=== PATIENT | female | born 2000 | race Caucasian/White ===

== ENCOUNTER 2020-04-18 09:59 | Emergency (ER) | payer BC, MEDICAID ==
[~2020-04-18] VITALS: Ht 154.9 cm; Wt 43.3 kg
--- NOTE | 2020-04-18 10:19 | NUR ---
Patient given blanket and put in position of comfort.
[2020-04-18] MEDS ORDERED: ketorolac trometh. 30mg/ml inj. IV ONE (10:25)
[2020-04-18] MEDS ORDERED: normal saline 1000ML IV soln IVB ONE (10:25)
[2020-04-18 10:50] LABS: BASOPHILS % (AUTO) 0.7 % (0-1); EOSINOPHILS # (AUTO) 0.5 X10'3 (0-0.9); EOSINOPHILS % (AUTO) 8.9 % (0-6); HEMATOCRIT 44.2 % (35.0-45.0); HEMOGLOBIN 14.5 g/dl (12.0-16.0); LYMPHOCYTES # (AUTO) 1.1 X10'3 (1.1-4.8); LYMPHOCYTES % (AUTO) 19.4 % (21-51); MEAN CORPUSCULAR HGB CONC 32.9 g/dL (33.0-36.5); MEAN CORPUSCULAR VOLUME 94.2 FL (78-98); MEAN PLATELET VOLUME 8.8 FL (7.4-10.4); MONOCYTES # (AUTO) 0.7 X10'3 (0-0.9); MONOCYTES % (AUTO) 11.2 % (2-12); NEUTROPHILS # (AUTO) 3.5 X10'3 (1.8-7.7); NEUTROPHILS % (AUTO) 59.8 % (42-75); PLATELET COUNT 217 X10'3 (140-440); RED BLOOD COUNT 4.69 X10'6 (4.20-5.60); RED CELL DISTRIBUTION WIDTH 14.2 % (11.5-14.5); WHITE BLOOD COUNT 5.8 X10'3 (4.5-11.0)
[2020-04-18 10:51] LABS: CLARITY,URINE SLIGHTLY CLOUDY (Clear); COLOR,URINE AMBER (Yellow)
[2020-04-18 10:53] LABS: UA COLLECTION TYPE CLN CATCH MIDSTREAM
[2020-04-18 10:56] LABS: URINE HCG NEGATIVE (NEG)
[2020-04-18 10:57] LABS: MUCUS STRANDS NONE SEEN /LPF (Neg); SQUAMOUS EPITHELIAL CELL,UR MANY /LPF (FEW); TRANSITIONAL EPI CELLS,URINE FEW /HPF
[2020-04-18 10:58] LABS: BACTERIA,URINE FEW /HPF (Neg); WBC,URINE 0-4 /HPF (0-4)
[2020-04-18 10:59] LABS: RBC,URINE 0-2 /HPF (0-2)
[2020-04-18 11:00] LABS: RENAL CELLS, URINE FEW /HPF
[2020-04-18 11:12] LABS: ALANINE AMINOTRANSFERASE 17 U/L (12-78); ALBUMIN/GLOBULIN RATIO 1.2 (1.1-1.5); ALKALINE PHOSPHATASE 85 IU/L (20-180); ANION GAP 10 (8-16); ASPARTATE AMINO TRANSFERASE 13 U/L (10-37); BILIRUBIN,TOTAL 0.2 MG/DL (0.1-1.0); BLOOD UREA NITROGEN 6 MG/DL (7-18); BUN/CREATININE RATIO 7.1 (6.6-38.0); CALCIUM 8.8 MG/DL (8.5-10.1); CHLORIDE 100 MMOL/L (99-107); CREATININE 0.85 MG/DL (0.40-0.90); GLUCOSE 133 MG/DL (70-104); POTASSIUM 3.7 MMOL/L (3.5-5.1); SODIUM 136 MMOL/L (135-145); TOTAL CARBON DIOXIDE 26.3 MMOL/L (24-32); TOTAL PROTEIN 7.4 G/DL (6.4-8.2); eGFR 85 ML/MIN
[2020-04-18] MEDS ORDERED: HYDROcodone/acetaminophen 5mg/325mg tablet PO ONE (11:35)
[2020-04-18] MEDS ORDERED: ondansetron/PF 4mg/2ml inj IV ONE (11:45)
[2020-04-18] MEDS ORDERED: morphine 4 MG/ML inj SYRINge IV ONE (11:45)
[2020-04-18] MEDS ORDERED: METR250T PO (13:14)
[2020-04-18] MEDS ORDERED: ONDA4TAB6 PO (13:14)
[2020-04-18] MEDS ORDERED: NAPR-56 PO (13:14)
[2020-04-18 13:32] VITALS: BP 119/82
== END 2020-04-18 13:30 | disposition home or self-care (01) ==
LOC: ER 10:00 → EEVIPCON 10:00 → ER 13:30
DX: N76.0 Acute vaginitis (principal); B96.89 Other specified bacterial agents as the cause of diseases classified elsewhere; M54.9 Dorsalgia, unspecified; Z79.899 Other long term (current) drug therapy
CPT/HCPCS: 36415; 74176; 76830; 76856; 80053; 81001; 81025; 85025; 96361; 96374; 96375; 99285; J1885; J2270; J2405; J7030

== ENCOUNTER 2023-01-05 12:42 | Emergency (ER) | payer BC, MEDICAID ==
[~2023-01-05] VITALS: Ht 154.9 cm; Wt 50.0 kg
[~2023-01-05 12:42] MED LIST: ONDA4TAB6 PO
[2023-01-05 12:45] VITALS: BP 128/80
[2023-01-05] MEDS ORDERED: LORA-269 PO (12:52)
[2023-01-05] MEDS ORDERED: BUPR-94 PO (12:52)
== END 2023-01-05 13:10 | disposition home or self-care (01) ==
LOC: EEVIPCON 12:42 → ER 12:42
DX: F32.A Depression, unspecified (principal); F41.9 Anxiety disorder, unspecified; Z79.899 Other long term (current) drug therapy
CPT/HCPCS: 99283; 99284

== ENCOUNTER 2023-02-14 09:30 | Emergency (ER) | payer MEDICAID ==
[~2023-02-14] VITALS: Ht 154.9 cm; Wt 44.0 kg
[~2023-02-14 09:30] MED LIST changes: +BUPR-94 PO; +LORA-269 PO
[2023-02-14 09:47] VITALS: PULSE 77; RESP 16; TEMP 98.8; O2SAT 98
[2023-02-14] MEDS ORDERED: BUPR-94 PO (10:04)
== END 2023-02-14 10:55 | disposition home or self-care (01) ==
LOC: ER 09:30
DX: S21.119D Laceration without foreign body of unspecified front wall of thorax without penetration into thoracic cavity, subsequent encounter (principal); Z79.899 Other long term (current) drug therapy; Z48.00 Encounter for change or removal of nonsurgical wound dressing; X58.XXXD Exposure to other specified factors, subsequent encounter
CPT/HCPCS: 99281

== ENCOUNTER 2023-03-16 09:06 | Emergency (ER) | payer MEDICAID ==
[~2023-03-16] VITALS: Ht 154.9 cm; Wt 44.2 kg
[2023-03-16 09:07] VITALS: BP 107/83; PULSE 95; RESP 16; TEMP 98.6; O2SAT 100
[2023-03-16] MEDS ORDERED: ketorolac trometh inj. 60 MG/2 ML VIAL IM ONE (09:25)
[2023-03-16] MEDS ORDERED: AZIT-164 PO (09:52)
== END 2023-03-16 10:16 | disposition home or self-care (01) ==
LOC: ER 09:06
DX: J02.9 Acute pharyngitis, unspecified (principal); Z20.822 Contact with and (suspected) exposure to COVID-19; Z79.2 Long term (current) use of antibiotics; Z79.899 Other long term (current) drug therapy
CPT/HCPCS: 36415; 87811; 96372; 99283; J1885

== ENCOUNTER 2023-04-19 12:43 | Emergency (ER) | payer MEDICAID ==
[~2023-04-19] VITALS: Ht 154.9 cm; Wt 45.5 kg
[2023-04-19 13:03] VITALS: BP 117/85; PULSE 98; RESP 18; TEMP 97.7; O2SAT 97
[2023-04-19] MEDS ORDERED: acetaminophen 325mg tablet PO ONE (13:05)
[2023-04-19] MEDS ORDERED: naproxen 500mg tablet PO ONE (13:05)
[2023-04-19] MEDS ORDERED: LIDOcaine 1% W/epiNEPHrine 1:100,000 20ml vial IJ ONE (13:05)
== END 2023-04-19 20:33 | disposition home or self-care (01) ==
LOC: ER 12:44
DX: M43.6 Torticollis (principal); M62.838 Other muscle spasm; F17.200 Nicotine dependence, unspecified, uncomplicated; Z79.899 Other long term (current) drug therapy
CPT/HCPCS: 20552; 99284; J3490

== ENCOUNTER 2024-07-15 10:04 | Emergency (ER) | payer MEDICAID ==
[~2024-07-15] VITALS: Ht 154.9 cm; Wt 45.0 kg
[2024-07-15 10:22] VITALS: BP 141/98; PULSE 78; TEMP 97.8; O2SAT 97
[2024-07-15] MEDS: ondansetron 4mg rapidly disintigrating tab PO ONE (10:35)
[2024-07-15] MEDS: HYDROcodone/acetaminophen 5mg/325mg tablet PO ONE (10:36)
[2024-07-15 10:48] VITALS: RESP 18
[2024-07-15] MEDS: ketorolac trometh 30MG/ML vial 30 MG/ML VIAL IM ONE (10:48)
[2024-07-15] MEDS: LIDOcaine 5% patch TP SCH (11:12)
[2024-07-15] MEDS ORDERED: NAPR-56 PO (12:03)
[2024-07-15] MEDS ORDERED: LIDO700A47 TOP (12:03)
[2024-07-15] MEDS ORDERED: HYDR-3972 PO (12:03)
== END 2024-07-15 12:38 | disposition home or self-care (01) ==
LOC: ER 10:05 → EEVIPCON 10:05 → ER 12:38
DX: S22.32XA Fracture of one rib, left side, initial encounter for closed fracture (principal); Z79.899 Other long term (current) drug therapy; X58.XXXA Exposure to other specified factors, initial encounter; Y93.9 Activity, unspecified; Y92.89 Other specified places as the place of occurrence of the external cause; Y99.8 Other external cause status
CPT/HCPCS: 71101; 96372; 99284; J1885; 99283

== ENCOUNTER 2025-05-17 08:10 | Emergency (ER) | payer BC, MEDICAID ==
[~2025-05-17] VITALS: Ht 157.5 cm; Wt 47.7 kg
[~2025-05-17 08:10] MED LIST changes: -BUPR-94 PO; -LORA-269 PO; -ONDA4TAB6 PO; +PROP60CA37 PO; +TAM50T PO
[2025-05-17 08:11] VITALS: TEMP 98.3
--- NOTE | 2025-05-17 08:35 | Physician Documentation ---
History of Present Illness ~ Chief Complaint: Flank Pain Stated Complaint: POSS KIDNEY INFECTION Time Seen by MD: 08:21 Primary Medical Doctor: Annia Murillo. Mode of Arrival: POV, Ambulatory HPI 25-year-old female presents to the ED with a complaint of several days of left- sided flank pain. She states that she has severe urinary tract infections and has been on two antibiotics most recently being Macrobid. States that she has had hematuria does not believe she has any now. She denies any history of kidney stones but reports a fever and nausea the last day. States she has a all-over body pain Medication Reconciliation Allergies: Coded Allergies: No Known Allergies (Unverified , 03/12/25) Scheduled Flecainide Acetate (Tambocor), 100 MG PO BID Propranolol HCl (Inderal LA), 1 CAP PO BID Scheduled PRN Hydrocodone Bit/Acetaminophen 5/325 MG ([place] 5/325 MG), 1 TAB PO Q6H PRN for pain Past Medical History Past Medical History: No Pertinent History, UTI Past Surgical History: no surgical history Alcohol Use: None Drug Use: none Lives with: Family Lives In: Home Occupation: employed Review of Systems All Other Systems at this time: Reviewed and Negative ROS As stated above in the HPI, otherwise all systems are reviewed and negative. Physical Exam Vital Signs: Temperature: 98.3, Source: Temporal, Heart Rate: 87, Respiratory Rate: 16, BP: 158/110, Pulse Oximetry: 98, Weight: 47.730 Oxygen Flow Rate: 0 Physical Exam General: Alert, no apparent distress. Respiratory: Lungs clear, no respiratory distress. Cardiovascular: Regular rate and rhythm, no murmurs. Gastrointestinal: Soft, nontender, nondistended. Bowels sounds present. Genitourinary: Positive CVA tenderness left side Neurologic: Oriented x4. Psychiatric: Normal mood and affect. Skin: Normal color, warm and dry. No edema, no ecchymosis. Progress Results/Orders Results/Orders Orders - KENYATTA BATISTA MD Cult Urine + [place] [address] (05/17/25 09:18) Completed Orders - KENYATTA BATISTA MD Hcg, Ur Ql (05/17/25 08:15) Cbc/Diff (05/17/25 08:15) BMP (05/17/25 08:15) Lipase (05/17/25 08:15) CMP (05/17/25 08:15) Man Diff (05/17/25 08:28) Ua W/Microscopic, Cult If Ind (05/17/25 08:41) Vital Signs 05/17/25 05/17/25 05/17/25 05/17/25 08:11 08:19 08:56 09:40 Temp 98.3 Pulse 87 75 Resp 16 18 18 B/P (MAP) 158/110 140/103 Pulse Ox 98 99 O2 Flow Rate 0 Laboratory Tests Test 05/17/25 08:28 05/17/25 08:41 White Blood Count 3.8 L Red Blood Count 4.82 Hemoglobin 15.5 Hematocrit 45.7 H Mean Corpuscular Volume 94.6 Mean Corpuscular Hemoglobin 32.2 H Mean Corpuscular Hemoglobin Concent 34.0 Red Cell Distribution Width 14.1 Platelet Count 208 Mean Platelet Volume 8.5 Neutrophils (%) (Auto) 53.5 Lymphocytes (%) (Auto) 19.9 L Monocytes (%) (Auto) 15.7 H Eosinophils (%) (Auto) 10.4 H Basophils (%) (Auto) 0.5 Neutrophils # (Auto) 2.0 Lymphocytes # (Auto) 0.8 L Monocytes # (Auto) 0.6 Eosinophils # (Auto) 0.4 Basophils # (Auto) 0.0 CBC Comment Differential Total Cells Counted 100 Neutrophils % (Manual) 62.0 Lymphocytes % (Manual) 18.0 L Monocytes % (Manual) 12.0 Eosinophils % (Manual) 8.0 H Platelet Estimate Normal Red Blood Cell Morphology Normal Basophilic Stippling Sodium Level 133 L Potassium Level 3.5 Chloride Level 99 Carbon Dioxide Level 26.1 Anion Gap 8 Blood Urea Nitrogen 3 L Creatinine 0.75 Estimated GFR/1.73 m2 > 90 BUN/Creatinine Ratio 4.0 L Glucose Level 107 H Calcium Level 8.4 L Total Bilirubin 0.2 Aspartate Amino Transf (AST/SGOT) 16 Alanine Aminotransferase (ALT/SGPT) 9 L Alkaline Phosphatase 90 Total Protein 7.7 Albumin 4.0 Globulin 3.7 Albumin/Globulin Ratio 1.1 Lipase 18 Chemistry Comments Urine Specimen Description Cln catch midstream Urine Color Yellow Urine Clarity Clear Urine pH 6.5 Urine Specific [place] 1.010 Urine Protein Negative Urine Glucose (UA) Negative Urine Ketones Negative Urine Occult Blood Trace-intact Urine Nitrite Negative Urine Bilirubin Negative Urine Urobilinogen 0.2 Urine Leukocyte Esterase Trace H Urine RBC 0-2 Urine WBC 0-4 Urine Squamous Epithelial Cells Few Urine Bacteria None seen Urine Culture Indicated Indicated Volume Urine Centrifuged 10 ml Urine HCG, Qualitative Negative Urine Comment Microbiology Date/Time Source Procedure Growth Status 05/17/25 09:18 Urine Clean Catch Midstream Urine Culture - Preliminary Culture received. Resulted Medical Decision Making Additional information obtaine: old records Findings Patient presented with left sided flank pain along with few episodes of hematuria. As she has been treated for severe UTI with antibiotics, her urinalysis shows trace leukocyte esterase, which could be secondary to her previous UTI Hence, patient is stable for discharge Patient had a recent admit for sinus tachycardia and was evaluated by Cardiology. She was discharged on propranolol 60 mg BID after symptomatic improvement. Her workup in March [address] Abdome/ Pelvis: No acute pathology, no renal calculi, only showed IUD Echocardiogram: Normal EF with no valvular abnormalities CTA: Ruled out PE Also no signs of sepsis, normal white count, vitals stable, no electrolyte abnormalities Patient did not experience further complications. All other labs were unremarkable. All labs, diagnostic workups, discharge plan discussed with patient in details. All questions and concerns answered to the best of my professional knowledge. Urinary Diff Dx:Considerations: Include: AAA, , Aortic dissection, A ppendicitis, Bowel obstruction, Cholelithiasis, Choleangitis, DJD, Ectopic , Hepatitis, HNP, Impaction, Intrauterine , Musculoskeletal pain, Ovarian torsion, Pancreatitis, PID, Post-Op complication, Pyelonephritis, Renal failure, Strain, Urinary Obstruction, Urolithiasis, Urinary retention, UTI, Vaginitis, Other Genital Diff Dx:Considerations: Unlikely: -Complete, - Incomplete, -Inevitable, Ablortion-Missed, -Threatened, Abruptio placentae, Bartholin abscess, Bartholin cyst, Blood loss anemia, Constipation, Cervicitis, Dsymenorrhea, Ectopic , Foreign body, Hormonal, Hidradenitis suppurativa, Intrauterine , Menorrhagia, Menometrorrhagia, Menstrual bleeding, Myomatous uterus, Perianal abscess, Physiologic discharge, Pinworms, PID, Placenta previa, , Precipitous Hct, Trauma, UTI, Vaginitis(osis)-Atrophic, Vaginitis, Vaginitis(osis)-Bacterial, Vaginitis(osis)- Candidal, Vaginitis(osis)-Contact, Vaginitis(osis)-Herpes, Vaginitis(osis)- Trich., Other Departure Disposition: HOME / SELF CARE / HOMELESS Impression: Primary Impression: Low back pain Condition: Stable Referrals: NO PRIMARY CARE PROVIDER (PCP) Prescriptions Hydrocodone Bit/Acetaminophen 5/325 MG ([place] 5/325 MG) 5 Mg/325 Mg Tablet 1 TAB PO Q6H PRN for pain, #14 TAB Prov: JESSICA AYALA PAVING FOREMAN 05/17/25 Signature Scribe Signature: u Attestation: Scribed for Jessica Ayala Cut Off Worker by Jessica Ayala - PONCHO . 05/17/25 08:35 JESSICA AYALA NP May 17, 2025 08:35 NELLY KIM, RES May 17, 2025 09:33 KENYATTA BATISTA MD May 17, 2025 17:42
[2025-05-17 08:45] LABS: MEAN PLATELET VOLUME 8.5 FL (7.4-10.4); RED CELL DISTRIBUTION WIDTH 14.1 % (11.5-14.5)
[2025-05-17] MEDS: HYDROcodone/acetaminophen 10/325mg tab PO ONE (08:56)
[2025-05-17] MEDS: ketorolac trometh 15mg/ml vial 15 MG/ML ML IM ONE (08:56)
[2025-05-17 08:58] LABS: URINE HCG NEGATIVE (NEG)
[2025-05-17 09:00] LABS: CREATININE 0.75 MG/DL (0.40-0.90); TOTAL CARBON DIOXIDE 26.1 MMOL/L (24-32); eCRCL 86 ML/MIN; eGFR > 90 ML/MIN
[2025-05-17 09:03] LABS: LEUKOCYTE ESTERASE ,URINE TRACE (Neg); NITRITES, URINE NEGATIVE (Neg); OCCULT BLOOD,URINE TRACE-INTACT (Neg)
[2025-05-17 09:15] LABS: UA COLLECTION TYPE CLN CATCH MIDSTREAM
[2025-05-17 09:18] LABS: SQUAMOUS EPITHELIAL CELL,UR FEW /LPF (FEW)
[2025-05-17] MEDS ORDERED: HYDR-3965 PO (09:26)
[2025-05-17 09:40] VITALS: BP 140/103; PULSE 75; RESP 18; O2SAT 99
[2025-05-17 09:52] LABS: EOSINOPHILS % (MANUAL) 8.0 % (0-6); LYMPHOCYTES % (MANUAL) 18.0 % (21-51); MONOCYTES % (MANUAL) 12.0 % (2-12); NEUTROPHILS % (MANUAL) 62.0 % (42-75)
[2025-05-17 09:53] LABS: PLATELET ESTIMATE NORMAL
== END 2025-05-17 09:42 | disposition home or self-care (01) ==
LOC: EEVIPCON 08:11 → ER 08:11
DX: M54.50 Low back pain, unspecified (principal); R10.A2 Flank pain, left side; Z79.899 Other long term (current) drug therapy
CPT/HCPCS: 36415; 80053; 81001; 81025; 83690; 85025; 87088; 96372; 99283; J1885; 85007

== ENCOUNTER 2025-05-20 07:43 | Emergency (ER) | payer BC ==
[~2025-05-20] VITALS: Ht 154.9 cm; Wt 47.7 kg
[~2025-05-20 07:43] MED LIST changes: +HYDR-3965 PO
--- NOTE | 2025-05-20 07:48 | Physician Documentation ---
Addendum CHIEF COMPLAINT/HPI: Patient is a 25-year-old female with a history of recent urinary tract infection diagnosed 05/12/2025 (completed course of Bactrim), s/p benign left nasal polyp/tumor resection, s/p 2 C sections, IUD, anxiety, and depression who presents with bilateral lower and mid back pain and epigastric pain. Last dose of Bactrim was yesterday evening, seven days completed. 05/17/2025 culture has not grown anything. Patient has irregular menstrual periods and does not think she is currently on a period. For the past several months the patient has had periods of tachycardia and seen a university controller. At 1 point she was trialed on propranolol and flecainide but is no longer on them. During the same time. She has been having migratory pain. One day her feet burn to the extent that she has trouble walking and another day she might have head pain around her ears. REVIEW OF SYSTEMS: Constitutional: Denies chills, fatigue, fever, weight gain or weight loss. HEENT: Denies hearing loss, sinus pressure or visual changes. Respiratory: Denies cough, shortness of breath or wheezing. Cardiovascular: Intermittent tachycardia. Gastrointestinal: Denies abdominal pain, blood in stool, constipation, di arrhea, heartburn, loss of appetite, nausea or vomiting. Genitourinary: Back in epigastric pain Metabolic/Endocrine: Denies cold intolerance, heat intolerance, excessive thirst (polydipsia) or excessive hunger (polyphagia). Neurological: Denies dizziness, extremity numbness, extremity weakness, headaches, seizures or tremors. Psychiatric: Denies anxiety or depression. Integumentary: Denies breast discharge, breast lump, hives, mole change(s), rash or skin lesion. Musculoskeletal: Denies back pain, joint pain, joint swelling or neck pain. Hematologic: Denies easily bleeding, easily bruises, lymphedema or issues with blood clots. Immunologic: Denies food allergies or seasonal allergies. PHYSICAL EXAMINATION: Vitals and nursing note reviewed. Constitutional: General: Patient is awake, alert, oriented x 4 in no acute distress and well appearing. Speech is clear and lucid. Appearance: Normal appearance. Patient is not ill-appearing, toxic-appearing or diaphoretic. HENT: Head: Normocephalic and atraumatic. Mouth: Mucous membranes are moist. Pharynx: Oropharynx is clear. Eyes: General: No scleral icterus. Extraocular Movements: Extraocular movements intact. Pupils: Pupils are equal, round, and reactive to light. Neck: Supple, no Kernig or Brudzinski sign. Cardiovascular: Rate and Rhythm: Normal rate and regular rhythm. Heart sounds: No murmur heard. Pulmonary: Effort: No respiratory distress. Breath sounds: No wheezing, rhonchi or rales. Abdominal: General: There is no distension. Palpations: There is no fluid wave, hepatomegaly or mass. Tenderness: There is no abdominal tenderness. There is no guarding. Musculoskeletal: General: No swelling or deformity. Skin: Coloration: Skin is not jaundiced. Findings: No erythema or rash. Neurological: Mental Status: Patient is alert. MEDICAL DECISION MAKING: This 25-year-old female presents with several months of intermittent tachycardia and migratory pains. She currently takes metoprolol. Differential diagnosis includes (but is not limited to) anxiety/panic disorder, hyper thyroidism/thyrotoxicosis, viral or postviral syndrome, rheumatic fever post streptococcal reactive arthritis, fibromyalgia, pheochromocytoma, stimulant use. I do not believe she has acute coronary syndrome, pulmonary embolism or endocarditis. I am going to refer her to her PCP for referral to a specialist. Departure Disposition: HOME / SELF CARE / HOMELESS Impression: Primary Impression: Tachycardia, paroxysmal Additional Impression: Migratory pain Condition: Stable Additional Instructions: As we discussed, you would benefit by referral to a specialist such as an apron man or telecommunication equipment repairer. If you are unable to accomplish this in [place] you may have to reach out beyond [place] (e.g., [place] or the [place]). KENYATTA BATISTA MD May 20, 2025 07:48
[2025-05-20] MEDS: ondansetron/PF 4mg/2ml inj IV ONE (08:09)
[2025-05-20] MEDS: ketorolac trometh 15mg/ml vial 15 MG/ML ML IV ONE (08:12)
[2025-05-20] MEDS: normal saline 1000ml 1,000 ML IV ONE (08:16)
[2025-05-20 08:18] LABS: INFLUENZA TYPE A ANTIGEN RAPID NEGATIVE (Negative); INFLUENZA TYPE B ANTIGEN RAPID NEGATIVE (Negative)
[2025-05-20 08:21] LABS: MEAN PLATELET VOLUME 8.1 FL (7.4-10.4); RED CELL DISTRIBUTION WIDTH 13.9 % (11.5-14.5)
[2025-05-20 08:21] LABS: LEUKOCYTE ESTERASE ,URINE MODERATE (Neg); NITRITES, URINE NEGATIVE (Neg); OCCULT BLOOD,URINE LARGE (Neg)
[2025-05-20 08:25] LABS: UA COLLECTION TYPE CLN CATCH MIDSTREAM
[2025-05-20 08:30] LABS: SQUAMOUS EPITHELIAL CELL,UR MANY /LPF (FEW)
[2025-05-20 08:31] LABS: MUCUS STRANDS FEW /LPF (Neg)
[2025-05-20 08:37] LABS: CREATININE 0.65 MG/DL (0.40-0.90); TOTAL CARBON DIOXIDE 28.6 MMOL/L (24-32); eCRCL 99 ML/MIN; eGFR > 90 ML/MIN
[2025-05-20] MEDS: HYDROmorphone inj. 0.5 MG/0.5 ML DISP.SYRIN IV ONE ×3 (08:52→16:04)
[2025-05-20 10:57] LABS: LEUKOCYTE ESTERASE ,URINE NEGATIVE (Neg); NITRITES, URINE NEGATIVE (Neg); OCCULT BLOOD,URINE SMALL (Neg)
[2025-05-20 11:08] LABS: UA COLLECTION TYPE CLN CATCH MIDSTREAM
[2025-05-20 11:16] LABS: SQUAMOUS EPITHELIAL CELL,UR FEW /LPF (FEW)
[2025-05-20] MEDS ORDERED: iohexol 300mg/ml 100ml inj. ONE (13:35)
--- NOTE | 2025-05-20 14:08 | RADIOLOGY REPORT ---
Indication: Pain. Please include lumbar spine. Technique: CT axial images of the abdomen and pelvis are obtained with intravenous contrast. Coronal and sagittal reformats were obtained. Radiation Dose Information: CTDI volume is 5.5 mGy. Dose-length product is 256 mGy*cm Comparison: CT CT ABDOMEN PELVIS W/ IV CONTRAST on DOS: 03/16/25 FINDINGS: Lung bases demonstrate no pleural effusion. Adrenal glands, spleen, pancreas, liver unremarkable. No CT evidence for cholelithiasis. Kidneys demonstrate no hydronephrosis. Stomach partially distended. Small bowel loops demonstrate Fecal like contents. Normal appendix. Abdominal aorta normal in caliber. Bladder partially distended. Intrauterine device. No free pelvic fluid. No inguinal lymphadenopathy. No aggressive osseous process. IMPRESSION: Moderate to large volume stool within the colon. Fecal like contents within the small bowel which can be seen with ileus, hypomotility, bowel obstruction.
[2025-05-20] MEDS ORDERED: HYDR-3965 PO (15:52)
[2025-05-20 16:14] VITALS: BP 150/86; PULSE 87; RESP 16; TEMP 98; O2SAT 98
== END 2025-05-20 16:15 | disposition home or self-care (01) ==
LOC: EEVIPCON 07:43 → ER 07:43
DX: R00.0 Tachycardia, unspecified (principal); G43.909 Migraine, unspecified, not intractable, without status migrainosus; Z87.440 Personal history of urinary (tract) infections; Z20.822 Contact with and (suspected) exposure to COVID-19
CPT/HCPCS: 36415; 74177; 80053; 81001; 83605; 83690; 83735; 84145; 84702; 85025; 85651; 86140; 87804; 87811; 96361; 96374; 96375; 96376; 99285; J1171; J1885; J2405; J7030; Q9967